=== PATIENT | female | born 1990 | race Caucasian/White ===

== ENCOUNTER 2018-02-25 19:48 | Emergency (ER) | payer OTHER ==
[~2018-02-25] VITALS: Ht 180.3 cm; Wt 90.7 kg
[2018-02-25 19:57] VITALS: BP 132/86
== END 2018-02-25 22:56 | disposition home or self-care (01) ==
LOC: ER 19:51
DX: K64.8 Other hemorrhoids (principal); Z88.2 Allergy status to sulfonamides
CPT/HCPCS: A4606; Z7610